=== PATIENT | female | born 1940 | race African-American/Black ===

== ENCOUNTER 2017-06-26 10:26 | Emergency (ER) | payer BC, MEDICARE ==
[~2017-06-26] VITALS: Ht 157.5 cm; Wt 69.0 kg
[2017-06-26 10:28] VITALS: BP 150/35
== END 2017-06-26 17:15 | disposition home or self-care (01) ==
LOC: ER 16:40
DX: H91.92 Unspecified hearing loss, left ear (principal); I12.0 Hypertensive chronic kidney disease with stage 5 chronic kidney disease or end stage renal disease; N18.6 End stage renal disease; Z88.0 Allergy status to penicillin; Z95.5 Presence of coronary angioplasty implant and graft; Z99.2 Dependence on renal dialysis; Z95.820 Peripheral vascular angioplasty status with implants and grafts
CPT/HCPCS: 99281

== ENCOUNTER 2017-06-29 09:51 | Emergency (ER) | payer BC, MEDICARE ==
[~2017-06-29] VITALS: Ht 152.4 cm; Wt 70.0 kg
[2017-06-29] MEDS ORDERED: ACETAMINOPHEN 325MG TABLET PO ONE (14:45)
[2017-06-29 14:53] VITALS: BP 162/102
== END 2017-06-29 14:54 | disposition home or self-care (01) ==
LOC: ER 11:11
DX: H92.03 Otalgia, bilateral (principal); I10 Essential (primary) hypertension; Z88.0 Allergy status to penicillin; Z99.2 Dependence on renal dialysis; Z98.62 Peripheral vascular angioplasty status
CPT/HCPCS: 99282